=== PATIENT | male | born 1980 | race Caucasian/White ===

== ENCOUNTER 2019-10-29 13:56 | Inpatient (IN) | payer OTHER ==
--- NOTE | 2019-10-29 14:08 | BHS.RME ---
Substance Use & Tx History - Substance Use History Heroin Substance amount: 8 bags Frequency of use: Daily Substance route: Injection (ex: intravenous or skin popping) Date of Last Use: 10/29/19 Cocaine- Powder Substance amount: 5 bags Frequency of use: Daily Substance route: Injection (ex: intravenous or skin popping) Date of Last Use: 10/28/19 Cocaine-Crack Substance amount: 5 bags Frequency of use: Daily Substance route: Smoking Date of Last Use: 10/28/19 Nicotine Substance amount: 1 pack Frequency of use: Daily Substance route: Smoking Date of Last Use: 10/29/19 Physical/Psych/Mental Status - Behavior General Behavior: Increased activity (restlessness, agitation) Eye Contact: Normal - Cooperativeness Cooperativeness: Cooperative - Thinking Thought Processes: Tight, Logical, Goal Directed - Physical Health Problems Is patient presently having any pain?: No Does patient presently have any injuries (include location): No Does patient currently have a fever: No Is patient : No COWS - Scale Resting Pulse: 0= [place] 80 or Below Sweatin=Flushed/Facial Moisture Restless Observation: 0= Sits Still Pupil Size: 0= Normal to Room Light Bone or Joint Aches: 1= Mild Discomfort Runny Nose/ Eye Tearin= Nasal Congestion GI Upset > 30mins: 1= Stomach Cramp Tremor Observation: 1= Tremor [place], Not Seen Yawning Observation: 1= 1-2x During Session Anxiety or Irritability: 1=Feels Anxious/Irritable Goose Flesh Skin: 0=Smooth Skin COWS Score: 8
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
[2019-10-29] MEDS ORDERED: MAGNESIUM CITRATE 300 ML BOTTLE PO PRN (16:45)
[2019-10-29] MEDS ORDERED: MAG HYDROX/AL HYDROX/SIMETH 30 ML UNIT-DOSE CUP PO PRN (16:45)
[2019-10-29] MEDS ORDERED: MAGNESIUM HYDROX 2400MG/30ML ORAL SUSPENSION 30 ML CUP PO PRN (16:45)
[2019-10-29] MEDS ORDERED: NICOTINE POLACRILEX 2 MG GUM BUC PRN (16:45)
[2019-10-29] MEDS ORDERED: ACETAMINOPHEN 325 MG TABLET (FP) PO PRN ×2 (16:45)
[2019-10-29] MEDS ORDERED: METHOCARBAMOL 500 MG TABLET PO PRN (16:45)
[2019-10-29] MEDS ORDERED: MENTHOL/PHENOL 1 EACH UD MM PRN (16:45)
[2019-10-29] MEDS ORDERED: BISMUTH SUBSALICYLATE 524 MG/30 ML UD PO PRN (16:45)
[2019-10-29] MEDS ORDERED: cloNIDine HCL 0.1 MG TABLET PO PRN (16:46)
[2019-10-29] MEDS ORDERED: ONDANSETRON *ODT* 4 MG TABLET SL ONE (17:00)
[2019-10-29] MEDS ORDERED: METHADONE HCL 10 MG TABLET (FOR DETOX USE ONLY) PO ONE ×2 (17:00→18:00)
[2019-10-29 17:40] VITALS: BMI 27.1
[2019-10-29] MEDS ORDERED: hydrOXYzine PAMOATE 25 MG CAPSULE (FP) PO PRN (17:53)
--- NOTE | 2019-10-29 17:58 | PN ---
Teaching Attending Note Name of Resident: Harvey Harrison ATTENDING PHYSICIAN STATEMENT I saw and evaluated the patient. I reviewed the resident's note and discussed the case with the resident. I agree with the resident's findings and plan as documented. SUBJECTIVE: 39 y.o. male requesting detox from heroin use , reports 6-7 bags i.v. in UE , h/o prior abscess . Denies OD . OBJECTIVE: wnwd , UE tracks lexie UE , left antecubital abscess w/ excoriation , tender to palpation Vital Signs - 24 hr 10/29/19 17:36 Temperature 97.0 F L Pulse Rate 65 Respiratory 14 Rate Blood Pressure 100/65 ASSESSMENT AND PLAN: OUD - Methadone detox Left arm abscess -
[2019-10-29] MEDS ORDERED: hydrOXYzine PAMOATE 25 MG CAPSULE (FP) PO SCH (18:00)
[2019-10-29] MEDS: NICOTINE 7 MG/24 HOURS TOPICAL PATCH TD SCH (18:48)
[2019-10-29] MEDS: PRENATAL VITAMINS W/ FOLIC ACID TABLET (FP) PO SCH (18:49)
[2019-10-29] MEDS: THIAMINE HCL 100 MG TABLET (FP) PO SCH (22:22)
[2019-10-29] MEDS: SULFAMETHOXAZOLE/TRIMETHOPRIM 800MG/160MG D.S. TABLET PO SCH (22:23)
[2019-10-29] MEDS: MELATONIN 5 MG TABLETS PO SCH (22:23)
[2019-10-30] MEDS: IBUPROFEN 400 MG TABLET (FP) PO PRN ×2 (03:32→22:17)
[2019-10-30] MEDS ORDERED: METHADONE HCL 5 MG TABLET (FOR DETOX USE ONLY) PO ONE (10:00)
[2019-10-30] MEDS ORDERED: METHADONE (DETOX) 20 MG, METHADONE (DETOX) 5 MG PO ONE (10:00)
[2019-10-30] MEDS: NICOTINE 7 MG/24 HOURS TOPICAL PATCH TD SCH (10:06)
[2019-10-30] MEDS: PRENATAL VITAMINS W/ FOLIC ACID TABLET (FP) PO SCH (10:06)
[2019-10-30] MEDS: SULFAMETHOXAZOLE/TRIMETHOPRIM 800MG/160MG D.S. TABLET PO SCH ×2 (10:06→22:16)
--- NOTE | 2019-10-30 10:52 | PN ---
BHS COWS - Scale Resting Pulse: 0= [place] 80 or Below Sweatin= Chills/Flushing Restless Observation: 0= Sits Still Pupil Size: 0= Normal to Room Light Bone or Joint Aches: 1= Mild Discomfort Runny Nose/ Eye Tearin= Runny Nose/Eyes GI Upset > 30mins: 0= None Tremor Observation of Outstretched Hands: 0= None Yawning Observation: 0= None Anxiety or Irritability: 1=Feels Anxious/Irritable Goose Flesh Skin: 0=Smooth Skin COWS Score: 5 BHS Progress Note (SOAP) Subjective: Mild bone aches, runny nose, anxiety Objective: 10/30/19 10:51 PE Gnl: WDWN, in no distress MS: mild anxiety Motor; normal Coord: nl Home Medication List Medication Instructions Recorded Confirmed Type NK [No Known Home Medication] 10/29/19 10/29/19 History Active Medications Generic Name Dose Route Start Last Admin Trade Name Freq PRN Reason Stop Dose Admin Acetaminophen 650 mg 10/29/19 16:45 Tylenol - PO Q6H PRN PAIN LEVEL 4 - 6 Acetaminophen 650 mg 10/29/19 16:45 Tylenol - PO Q6H PRN FEVER Al Hydroxide/Mg Hydroxide 30 ml 10/29/19 16:45 Mylanta Oral Suspension - PO Q6H PRN DYSPEPSIA Bismuth Subsalicylate 524 mg 10/29/19 16:45 Pepto-Bismol - PO Q1H PRN DIARRHEA Clonidine 0.1 mg 10/29/19 16:46 Catapres - PO 10/31/19 23:59 Q4H PRN Withdrawal Symptoms Eucalyptus/Menthol/Phenol/Sorbitol 1 each 10/29/19 16:45 Cepastat Lozenge - MM 11/04/19 16:45 Q4H PRN SORE THROAT Hydroxyzine Pamoate 25 mg 10/29/19 17:53 10/29/19 22:22 Vistaril - PO 11/04/19 16:45 25 mg Q4H PRN Administration ANXIETY Ibuprofen 400 mg 10/29/19 16:45 10/30/19 03:32 Motrin - PO 400 mg Q6H PRN Administration PAIN LEVEL 1 - 3 Magnesium Citrate 300 ml 10/29/19 16:45 Citroma - PO Q48H PRN CONSTIPATION Magnesium Hydroxide 30 ml 10/29/19 16:45 Milk Of Magnesia - PO PRN PRN CONSTIPATION Melatonin 5 mg 10/29/19 22:00 10/29/19 22:23 Melatonin PO 5 mg HS LAVELLE Administration Methadone HCl 10 mg 10/31/19 10:00 Dolophine - PO 10/31/19 10:01 ONCE ONE Methadone HCl 5 mg 11/01/19 06:00 Dolophine - PO 11/01/19 06:01 ONCE ONE Methocarbamol 500 mg 10/29/19 16:45 Robaxin - PO 11/04/19 16:45 Q6H PRN MUSCLE SPASMS Nicotine 7 mg 10/29/19 17:00 10/30/19 10:06 Nicoderm Patch - TD Not Given DAILY LAVELLE Nicotine Polacrilex 2 mg 10/29/19 16:45 Nicorette Gum - BUC Q2H PRN NICOTINE REPLACEMENT RX Multivit/Folic Acid/Iron 1 tab 10/29/19 17:00 10/30/19 10:06 Vitamins (Sjr) - PO 1 tab DAILY LAVELLE Administration Thiamine HCl 100 mg 10/29/19 22:00 10/29/19 22:22 Vitamin B1 - PO 100 mg HS LAVELLE Administration Trimethoprim/Sulfamethoxazole 1 each 10/29/19 22:00 10/30/19 10:06 Bactrim Ds - PO 11/12/19 10:01 1 each BID LAVELLE Administration Vital Signs Temperature 97.7 F 10/30/19 09:02 Pulse Rate 60 10/30/19 09:02 Respiratory Rate 18 10/30/19 09:02 Blood Pressure 93/56 L 10/30/19 09:02 O2 Sat by Pulse Oximetry (%) 100 10/30/19 05:07 Assessment: 10/30/19 10:49 1. Opiod use disorder 2. Nicotine dependence 10/30/19 10:52 Plan: 1. Methadone protocol 2. Nicoderm patch 3. Routine labs pending
[2019-10-30 11:43] LABS: HEMATOCRIT 42.1 % (35.4-49); HEMOGLOBIN 13.1 GM/dL (11.7-16.9); MCH 24.7 pg (25.7-33.7); MCHC 31.1 g/dl (32.0-35.9); MEAN CELL VOLUME 79.5 fl (80-96); MEAN PLT VOLUME 8.4 fl (7.5-11.1); PLATELET COUNT 461 K/MM3 (134-434)
[2019-10-30 12:13] LABS: BILIRUBIN,TOTAL 0.2 mg/dL (0.2-1); BLOOD UREA NITROGEN 12.6 mg/dL (7-18); CALCIUM 8.8 mg/dL (8.5-10.1); POTASSIUM 4.4 mmol/L (3.5-5.1); TOT PROT 6.7 g/dl (6.4-8.2)
[2019-10-30] MEDS: MELATONIN 5 MG TABLETS PO SCH (22:16)
[2019-10-30] MEDS: THIAMINE HCL 100 MG TABLET (FP) PO SCH (22:16)
[2019-10-31] MEDS ORDERED: METHADONE HCL 10 MG TABLET (FOR DETOX USE ONLY) PO ONE ×2 (10:00)
[2019-10-31] MEDS: SULFAMETHOXAZOLE/TRIMETHOPRIM 800MG/160MG D.S. TABLET PO SCH ×2 (10:17→22:22)
[2019-10-31] MEDS: PRENATAL VITAMINS W/ FOLIC ACID TABLET (FP) PO SCH (10:17)
[2019-10-31] MEDS: NICOTINE 7 MG/24 HOURS TOPICAL PATCH TD SCH (10:18)
--- NOTE | 2019-10-31 11:18 | PN ---
S COWS - Scale Resting Pulse: 0= [place] 80 or Below Sweatin= No chills or Flushing Restless Observation: 0= Sits Still Pupil Size: 0= Normal to Room Light Bone or Joint Aches: 1= Mild Discomfort Runny Nose/ Eye Tearin= None GI Upset > 30mins: 0= None Tremor Observation of Outstretched Hands: 0= None Yawning Observation: 0= None Anxiety or Irritability: 2=Irritable/Anxious Goose Flesh Skin: 0=Smooth Skin COWS Score: 3 BHS Progress Note (SOAP) Subjective: c/o mild withdrawal symptoms. Objective: 10/31/19 11:17 Vital Signs 10/31/19 10/31/19 10/31/19 03:22 05:38 09:05 Temperature 97.8 F 97.3 F L Pulse Rate 50 L 62 Respiratory 16 16 18 Rate Blood Pressure 97/58 L 99/56 L O2 Sat by Pulse 100 Oximetry (%) Laboratory Last Values WBC 11.0 K/mm3 (4.0-10.0) H 10/30/19 07:30 RBC 5.30 M/mm3 (4.00-5.60) 10/30/19 07:30 Hgb 13.1 GM/dL (11.7-16.9) 10/30/19 07:30 Hct 42.1 % (35.4-49) 10/30/19 07:30 MCV 79.5 fl (80-96) L 10/30/19 07:30 MCH 24.7 pg (25.7-33.7) L 10/30/19 07:30 MCHC 31.1 g/dl (32.0-35.9) L 10/30/19 07:30 RDW 15.0 % (11.9-15.9) 10/30/19 07:30 Plt Count 461 K/MM3 (134-434) H 10/30/19 07:30 MPV 8.4 fl (7.5-11.1) 10/30/19 07:30 Sodium 143 mmol/L (136-145) 10/30/19 07:30 Potassium 4.4 mmol/L (3.5-5.1) 10/30/19 07:30 Chloride 106 mmol/L (98-107) 10/30/19 07:30 Carbon Dioxide 29 mmol/L (21-32) 10/30/19 07:30 Anion Gap 8 MMOL/L (8-16) 10/30/19 07:30 BUN 12.6 mg/dL (7-18) 10/30/19 07:30 Creatinine 1.0 mg/dL (0.55-1.3) 10/30/19 07:30 Est GFR (CKD-EPI)AfAm 108.63 10/30/19 07:30 Est GFR (CKD-EPI)NonAf 93.73 10/30/19 07:30 Random Glucose 81 mg/dL (74-106) 10/30/19 07:30 Calcium 8.8 mg/dL (8.5-10.1) 10/30/19 07:30 Total Bilirubin 0.2 mg/dL (0.2-1) 10/30/19 07:30 AST 13 U/L (15-37) L 10/30/19 07:30 ALT 14 U/L (13-61) 10/30/19 07:30 Alkaline Phosphatase 75 U/L (45-117) 10/30/19 07:30 Total Protein 6.7 g/dl (6.4-8.2) 10/30/19 07:30 Albumin 3.0 g/dl (3.4-5.0) L 10/30/19 07:30 Syphilis Serology Non-reactive (NONREACTIVE) 10/30/19 07:30 HIV Ag/Ab Combo Qual Negative (NEGATIVE) 10/30/19 08:10 Labs noted. Assessment: 10/31/19 11:18 AOX3, in no acute respiratory distress. Full ROM, ambulating in the unit. Mild Withdrawal symptoms. For d/c tomorrow. Plan: continue detox. D/C in AM.
[2019-10-31] MEDS: MELATONIN 5 MG TABLETS PO SCH (22:22)
[2019-10-31] MEDS: THIAMINE HCL 100 MG TABLET (FP) PO SCH (22:22)
[2019-10-31] MEDS: IBUPROFEN 400 MG TABLET (FP) PO PRN (22:28)
[2019-11-01] MEDS ORDERED: METHADONE HCL 5 MG TABLET (FOR DETOX USE ONLY) PO ONE (06:00)
--- NOTE | 2019-11-01 08:55 | DS ---
[facility] Detox Discharge Summary Admission Date: 10/29/19 Discharge Date: 11/01/19 - History Present History: Opioid Dependence Additional Comments: 39 years old male admitted on 10/29/19 for opiate withdrawal sx management treated with methadone detox regiment mr escobar has completed the methadone regiment and is tolerated well left antecubital skin abrasion treating with bacitracin ointment no signs of infection no drainage alert oriented x 3 speech clearly coherently cardiac s1s2 regular rate rhythm respiratory clear lung sounds bilaterally on auscultation skin warm and dry Pertinent Past History: time for discharge 36 minutes - Physical Exam Results Vital Signs: Vital Signs Temperature 97.5 F L 11/01/19 05:33 Pulse Rate 52 L 11/01/19 05:33 Respiratory Rate 18 11/01/19 05:33 Blood Pressure 94/66 11/01/19 05:33 O2 Sat by Pulse Oximetry (%) 100 11/01/19 05:33 Pertinent Admission Physical Exam Findings: opiate withdrawal Laboratory Tests 10/29/19 10/30/19 10/30/19 22:00 07:30 07:30 WBC 11.0 H RBC 5.30 Hgb 13.1 Hct 42.1 MCV 79.5 L MCH 24.7 L MCHC 31.1 L RDW 15.0 Plt Count 461 H MPV 8.4 Sodium Potassium Chloride Carbon Dioxide Anion Gap BUN Creatinine Est GFR (CKD-EPI)AfAm Est GFR (CKD-EPI)NonAf Random Glucose Calcium Total Bilirubin AST ALT Alkaline Phosphatase Total Protein Albumin Syphilis Serology Non-reactive COVID-19 (ANIBAL) Not detected HIV Ag/Ab Combo Qual 10/30/19 10/30/19 07:30 08:10 WBC RBC Hgb Hct MCV MCH MCHC RDW Plt Count MPV Sodium 143 Potassium 4.4 Chloride 106 Carbon Dioxide 29 Anion Gap 8 BUN 12.6 Creatinine 1.0 Est GFR (CKD-EPI)AfAm 108.63 Est GFR (CKD-EPI)NonAf 93.73 Random Glucose 81 Calcium 8.8 Total Bilirubin 0.2 AST 13 L ALT 14 Alkaline Phosphatase 75 Total Protein 6.7 Albumin 3.0 L Syphilis Serology COVID-19 (ANIBAL) HIV Ag/Ab Combo Qual Negative lab noted - Treatment Hospital Course: Detox Protocol Followed, Detoxed Safely, Responded well, Discharged Condition Good, Rehab Referral Accepted Patient has Accepted [facility] Referral [facility] - Medication Discharge Medications: Ambulatory Orders NK [No Known Home Medication] 10/29/19 - Diagnosis (1) Opioid dependence, uncomplicated Current Visit: Yes Status: Acute (2) Skin abrasion Current Visit: Yes Status: Resolved - AMA Did Patient Leave Against Medical Advice: No COWS (PN) - Opiate Withdrawal Resting Pulse: 0= [place] 80 or Below Sweatin= No chills or Flushing Restless Observation: 0= Sits Still Pupil Size: 0= Normal to Room Light Bone or Joint Aches: 0= None Runny Nose/ Eye Tearin= None GI Upset > 30mins: 0= None Tremor Observation of Outstretched Hands: 0= None Yawning Observation: 0= None Anxiety or Irritability: 1=Feels Anxious/Irritable Goose Flesh Skin: 0=Smooth Skin COWS Score: 1
[2019-11-01] MEDS: SULFAMETHOXAZOLE/TRIMETHOPRIM 800MG/160MG D.S. TABLET PO SCH (09:35)
[2019-11-01] MEDS: NICOTINE 7 MG/24 HOURS TOPICAL PATCH TD SCH (09:35)
[2019-11-01] MEDS: PRENATAL VITAMINS W/ FOLIC ACID TABLET (FP) PO SCH (09:35)
[2019-11-01] MEDS ORDERED: METHADONE (DETOX) 10 MG, METHADONE (DETOX) 5 MG PO ONE (10:00)
[2019-11-01 13:23] VITALS: BP 91/61; PULSE 61; TEMP 97.3
[2019-11-02] MEDS ORDERED: METHADONE HCL 10 MG TABLET (FOR DETOX USE ONLY) PO ONE (10:00)
[2019-11-03] MEDS ORDERED: METHADONE HCL 5 MG TABLET (FOR DETOX USE ONLY) PO ONE (06:00)
== END 2019-11-01 14:02 | disposition other institution (70) | DRG 773 ==
LOC: YASAS 13:56 → Y3N 16:46
PROVIDERS: ADMIT Allergy & Immunology; ATTEND Allergy & Immunology
PROC: HZ2ZZZZ Detoxification Services for Substance Abuse Treatment (ICD-10-PCS; principal; 2019-10-29)
DX: F11.23 Opioid dependence with withdrawal (principal); F14.20 Cocaine dependence, uncomplicated; F17.210 Nicotine dependence, cigarettes, uncomplicated; F32.9 Major depressive disorder, single episode, unspecified; L02.414 Cutaneous abscess of left upper limb; J45.909 Unspecified asthma, uncomplicated; B18.2 Chronic viral hepatitis C; Z59.0 Homelessness
CPT/HCPCS: 36415; 80053; 85027; 86780; 87389; U0003

== ENCOUNTER 2019-11-01 14:19 | Inpatient (IN) | payer OTHER ==
--- NOTE | 2019-11-01 12:31 | HP ---
[facility] Rehab Assess/Revision - Admission History Admitted to Rehab from: [facility] Date of Admission to Rehab: 11/01/19 - Findings Detox History & Physical reviewed: Yes Concur with findings: Yes Comments/Additional Findings: tranferred from detox to rehab admission as per protocol Inpatient Rehab Admission - Rehab Decision to Admit Inpatient rehab admission?: Yes - Initial Determination Are CD services needed?: Yes Free of communicable disease: Yes Not in need of hospitalization: Yes - Rehab Admission Criteria Previous failed treatment: Yes Poor recovery environment: Yes Comorbidities: Yes Lacks judgement: Yes Patient is meeting Inpatient Rehab admission criteria:: Yes
[~2019-11-01 14:19] MED LIST: ACETAMINOPHEN 325 MG TABLET (FP) PO PRN; LOPERAMIDE HCL 2 MG CAPSULE PO PRN; MAG HYDROX/AL HYDROX/SIMETH 30 ML UNIT-DOSE CUP PO PRN; MAGNESIUM CITRATE 300 ML BOTTLE PO PRN; MAGNESIUM HYDROX 2400MG/30ML ORAL SUSPENSION 30 ML CUP PO PRN; NICOTINE POLACRILEX 2 MG GUM BUC PRN; P-EPHED 60MG/TRIPROLIDI 2.5MG TABLET PO PRN; guaiFENesin 200 MG/10 ML 10 ML UNIT-DOSE CUPS PO PRN
[2019-11-01] MEDS: BACITRACIN 0.9 GM PACKET TP SCH ×2 (15:52→21:24)
[2019-11-01] MEDS: SULFAMETHOXAZOLE/TRIMETHOPRIM 800MG/160MG D.S. TABLET PO SCH (21:24)
[2019-11-01] MEDS: MELATONIN 5 MG TABLETS PO SCH (21:24)
[2019-11-01] MEDS: THIAMINE HCL 100 MG TABLET (FP) PO SCH (21:25)
[2019-11-02] MEDS: BACITRACIN 0.9 GM PACKET TP SCH ×3 (06:35→21:35)
[2019-11-02] MEDS: SULFAMETHOXAZOLE/TRIMETHOPRIM 800MG/160MG D.S. TABLET PO SCH ×2 (09:46→21:35)
[2019-11-02] MEDS: NICOTINE 7 MG/24 HOURS TOPICAL PATCH TD SCH (09:46)
[2019-11-02] MEDS: hydrOXYzine PAMOATE 25 MG CAPSULE (FP) PO PRN (09:46)
[2019-11-02] MEDS: PRENATAL VITAMINS W/ FOLIC ACID TABLET (FP) PO SCH (09:46)
[2019-11-02] MEDS: MELATONIN 5 MG TABLETS PO SCH (21:35)
[2019-11-02] MEDS: THIAMINE HCL 100 MG TABLET (FP) PO SCH (21:35)
[2019-11-02] MEDS: IBUPROFEN 400 MG TABLET (FP) PO PRN (22:40)
[2019-11-03] MEDS: BACITRACIN 0.9 GM PACKET TP SCH ×3 (06:07→21:13)
[2019-11-03] MEDS: SULFAMETHOXAZOLE/TRIMETHOPRIM 800MG/160MG D.S. TABLET PO SCH ×2 (10:03→21:13)
[2019-11-03] MEDS: PRENATAL VITAMINS W/ FOLIC ACID TABLET (FP) PO SCH (10:03)
[2019-11-03] MEDS: hydrOXYzine PAMOATE 25 MG CAPSULE (FP) PO PRN (10:03)
[2019-11-03] MEDS: IBUPROFEN 400 MG TABLET (FP) PO PRN (10:05)
[2019-11-03] MEDS: NICOTINE 7 MG/24 HOURS TOPICAL PATCH TD SCH (10:06)
[2019-11-03] MEDS ORDERED: IBUPROFEN 600 MG TABLET (FP) PO PRN (13:20)
--- NOTE | 2019-11-03 13:24 | PN ---
S Progress Note (SOAP) Subjective: Patient c/o insomnia and back pain. LEYLA Smith found the patient lying on the floor this morning Objective: general: appears to be in pain Neck: supple MSK: limited ROM r/t pain, steady gait Neuro: Muscle strength equal bilaterally 11/04/19 08:11 Assessment: chronic back pain 11/04/19 08:12 Plan: increased Motrin, added Lidoderm patch and roboxin. Patient refused demario-hartley.
[2019-11-03] MEDS: LIDOCAINE 5% TOPICAL PATCH TP SCH (14:02)
[2019-11-03] MEDS: METHOCARBAMOL 500 MG TABLET PO SCH ×3 (14:02→21:13)
--- NOTE | 2019-11-03 16:54 | CONSULT ---
[facility] Psychiatric Consult - Data Date of interview: 11/03/19 Admission source: Transfer from [address] [place] [address] Identifying data: First visit to [facility] for this 39 y/o male who completed detoxification at [address] [place] [address] and sought to enlist in rehabilitation treatment at [address] for maintenance of sobriety + management of insomnia and mood disorder. Patient is single, no dependents, homeless ([facility]), unemployed and supported on food stamps. Substance Abuse History: Discussed with the patient. SOPHIA profile as follows : Smoking history: Current every day smoker. Have you smoked in the past 12 months: Yes. Aproximately how many cigarettes per day: 20 (First at age 14). Cigars Per Day: 20. Hx Chewing Tobacco Use: No. Initiated information on smoking cessation: Yes. 'Breaking Loose' booklet given: 10/28/19. - Substance & Tx. History. Hx Substance Use: Yes (heroine,cocaine,crack,nicotine). Substance Use Type: Cocaine (5 bag/day. First at age 18), Heroin (About 8 bags IV/day. Last dose-today; 4 bags. First at age 19). Hx Substance Use Treatment: Yes (Methocabamol, nicotine, methadone,). - Substances abused. Crack. Other (specify): 5 bags. First at age 18. Substance route: Smoking. Frequency: 3-6 times per week. Amount used: 5 bags. Age of first use: 18. Date of last use: 10/28/19. Heroin. Substance route: Injection. Frequency: 3-6 times per week. Amount used: 4 bags. Age of first use: 19. Date of last use: 10/29/19. Cocaine. Substance route: Injection. Amount used: 5 bags. Age of first use: 19. Date of last use: 10/28/19. Other. Other (specify): tobacco. Substance route: Smoking. Amount used: 1 pk. Age of first use: 14. Date of last use: 10/29/19 Medical History: Patient endorses good general health. Psychiatric History: Patient admits to a history of one psychiatric hospitalization, four years ago, at a facility located " in the [place], on [facility] ". Name not recalled. Mr Piper states that " they say that I have depression but I don't remember the medications given to me." Patient did not stay in teatment for long. He, apparently, dropped out of psychiatric care shortly after his discharge from the hospital. Did not follow his aftercare referrals. No medications taken for several months. Patient admits to a distant history of one suicide attempt ([facility],15 years ago). Physical/Sexual Abuse/Trauma History: Enduring stressors : homelessness, poverty, chronic unemployment, financial constraints, lack of vocational skills, addictions and history of incarcerations. Additional Comment: Urine drug screen results: TARIQ-Cocaine, FEN-Fentanyl, MOP- Opiates, MTD-Methadone, BUP-Suboxone. Noted. Mental Status Exam - Mental Status Exam Alert and Oriented to: Time, Place, Person Cognitive Function: Good Patient Appearance: Well Groomed Mood: Nervous, Withdrawn Affect: Mood Congruent, Constricted Patient Behavior: Fatigued, Appropriate, Cooperative Speech Pattern: Clear, Appropriate Voice Loudness: Normal Thought Process: Intact, Goal Oriented Thought Disorder: Not Present Hallucinations: Denies Suicidal Ideation: Denies Homicidal Ideation: Denies Insight/Judgement: Fair Sleep: Poorly, Difficulty falling asleep Appetite: Good Gait/Station: Normal Psychiatric Findings - Problem List ([place] 1, 2,3) (1) Opioid dependence, uncomplicated Current Visit: Yes Status: Chronic (2) Cocaine use disorder Current Visit: Yes Status: Chronic (3) Nicotine dependence Current Visit: Yes Status: Chronic (4) Substance induced mood disorder Current Visit: Yes Status: Chronic (5) Insomnia Current Visit: Yes Status: Chronic - Initial Treatment Plan Initial Treatment Plan: Psychoeducation and support. Sleep hygiene. Motivational counseling. NA meetings (with observance of COVID-19 guidelines : hand washing, face mask, social distancing). Insomnia is addressed with belomra 10 mg po hs prn. Side effects/benefits discussed with the patient. Informed consent (verbal) granted to MD. Olivia.
[2019-11-03] MEDS: MELATONIN 5 MG TABLETS PO SCH (21:13)
[2019-11-03] MEDS: THIAMINE HCL 100 MG TABLET (FP) PO SCH (21:13)
[2019-11-03] MEDS ORDERED: LIDOCAINE PATCH REMOVAL MC SCH (22:00)
[2019-11-03] MEDS ORDERED: SUVOREXANT 10 MG TABLET PO PRN (22:00)
[2019-11-04] MEDS: BACITRACIN 0.9 GM PACKET TP SCH (06:07)
[2019-11-04 07:02] VITALS: BP 106/63; PULSE 71; TEMP 99.6
[2019-11-04] MEDS: METHOCARBAMOL 500 MG TABLET PO SCH (10:15)
[2019-11-04] MEDS: NICOTINE 7 MG/24 HOURS TOPICAL PATCH TD SCH (10:15)
[2019-11-04] MEDS: LIDOCAINE 5% TOPICAL PATCH TP SCH (10:15)
[2019-11-04] MEDS: SULFAMETHOXAZOLE/TRIMETHOPRIM 800MG/160MG D.S. TABLET PO SCH (10:15)
[2019-11-04] MEDS: PRENATAL VITAMINS W/ FOLIC ACID TABLET (FP) PO SCH (10:15)
[2019-11-04] MEDS: hydrOXYzine PAMOATE 25 MG CAPSULE (FP) PO PRN (10:16)
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
== END 2019-11-04 14:30 | disposition home or self-care (01) | DRG 773 ==
LOC: YASAS 14:19 → Y3W 14:20
PROVIDERS: ADMIT Allergy & Immunology; ATTEND Allergy & Immunology
PROC: HZ2ZZZZ Detoxification Services for Substance Abuse Treatment (ICD-10-PCS; principal; 2019-11-01)
DX: F11.20 Opioid dependence, uncomplicated (principal); F14.20 Cocaine dependence, uncomplicated; F17.210 Nicotine dependence, cigarettes, uncomplicated; F19.24 Other psychoactive substance dependence with psychoactive substance-induced mood disorder; J45.909 Unspecified asthma, uncomplicated; G47.00 Insomnia, unspecified; M54.89 Other dorsalgia; G89.29 Other chronic pain; Z91.5 Personal history of self-harm; Z56.0 Unemployment, unspecified; Z59.0 Homelessness